=== PATIENT | female | born 1955 | race Two or more races ===

== ENCOUNTER 2022-10-06 18:41 | Inpatient (IN) | payer MEDICAID ==
[~2022-10-06] VITALS: Ht 157.5 cm; Wt 100.0 kg
[2022-10-06] MEDS ORDERED: IPRATROPIUM BROM 0.5 MG/2.5ML INH SOL HHN ONE (19:00)
[2022-10-06] MEDS ORDERED: methylPREDNISolone SOD SUCC 125 MG/2 ML VL IV ONE (19:00)
[2022-10-06] MEDS ORDERED: ALBUTEROL SULF 2.5 MG/0.5ML(0.5%) NEB SOLN HHN ONE (19:00)
[2022-10-06] MEDS ORDERED: ALBUTEROL MEDNEB 2.5 mg/3ml NEB ONE ×2 (19:03→23:22)
[2022-10-06 19:07] LABS: Basophils # (auto) 0.1 10 ^3/uL (0-0.2); Basophils % (auto) 0.7 % (0.0-2.0); Eosinophils # (auto) 0.6 10 ^3/uL (0-0.8); Eosinophils % (auto) 6.4 % (0.0-7.0); Hematocrit 39.9 % (36.0-46.0); Hemoglobin 12.7 g/dL (12.2-16.2); Lymphocytes # (auto) 3.4 10 ^3/uL (0.4-5.4); Lymphocytes % (auto) 37.4 % (10.0-50.0); Mean Corpuscular Hemoglobin 29.1 pg (28.0-32.0); Mean Corpuscular Hgb Conc. 31.8 g/dL (32.0-36.0); Mean Corpuscular Volume 91.7 fL (80.0-100.0); Monocytes # (auto) 0.5 10 ^3/uL (0-1.3); Monocytes % (auto) 5.3 % (0.0-12.0); Neutrophils # (auto) 4.5 10 ^3/uL (1.6-8.6); Neutrophils % (auto) 50.2 % (37.0-80.0); Nucleated Red Blood Cells % 0.1 %; Red Blood Cells 4.35 10^6/uL (4.0-5.20)
[2022-10-06 19:27] LABS: Albumin 3.4 g/dL (3.4-5.0); BUN/Creatinine Ratio 26.2; Calcium 9.3 mg/dL (8.5-10.1); Magnesium 2.3 mg/dL (1.6-2.6); Potassium 4.3 mmol/L (3.5-5.1)
[2022-10-06 19:30] LABS: Bilirubin, Total 0.3 mg/dL (0.2-1.0); Total Protein 7.5 g/dL (6.4-8.2)
[2022-10-06] MEDS ORDERED: ALBUTEROL SULF 2.5 MG/0.5ML(0.5%) NEB SOLN NEB PRN (21:45)
[2022-10-06] MEDS ORDERED: DEXTROSE (50%) 50ML SYRG IV PRN (21:45)
[2022-10-06] MEDS ORDERED: PANTOPRAZOLE 40 MG/10 ML VIAL INJ IV ONE (22:00)
[2022-10-06 22:17] VITALS: BP 92/28
[2022-10-06 22:34] LABS: Cholesterol 89 mg/dL (< 200)
[2022-10-06 22:37] LABS: HDL Cholesterol 44 mg/dL (40-59); LDL Cholesterol 41 mg/dL (< 100); Triglycerides 88 mg/dL (< 150)
[2022-10-06] MEDS: methylPREDNISolone SOD SUCC 125 MG/2 ML VL IV SCH (22:49)
[2022-10-06] MEDS: HEPARIN SODIUM (PORCINE) 5000 UNITS/ML 1ML VIAL SC SCH (22:50)
[2022-10-06] MEDS: ACCU-CHEK COMFORT CURVE STRIP VI SCH (22:51)
[2022-10-06] MEDS: InsuLIN REG 1unit/0.01ml Soln (100units/ml) SC SCH (22:51)
[2022-10-06] MEDS ORDERED: NITROGLYCERIN 0.4 MG SL TAB SL PRN (23:15)
[2022-10-06] MEDS ORDERED: MORPHINE SULFATE INJ 2 MG/ml SYRG IV PRN (23:30)
[2022-10-07] MEDS: ALBUTEROL SULF 2.5 MG/0.5ML(0.5%) NEB SOLN NEB SCH ×4 (00:15→18:31)
[2022-10-07] MEDS: IPRATROPIUM BROM 0.5 MG/2.5ML INH SOL NEB SCH ×4 (00:15→18:31)
[2022-10-07 02:58] LABS: Urine Bacteria NONE SEEN /hpf (None Seen); Urine Blood Negative /uL (Negative); Urine Hyaline Cast FEW /lpf (0 - 2); Urine Mucus FEW (None Seen); Urine Specific Gravity 1.023 (1.001-1.035); Urine WBC 2 /hpf (0 - 5)
[2022-10-07] MEDS ORDERED: ALBUTEROL MEDNEB 2.5 mg/3ml NEB ONE ×2 (06:04→11:34)
[2022-10-07] MEDS: InsuLIN REG 1unit/0.01ml Soln (100units/ml) SC SCH ×4 (07:38→22:21)
[2022-10-07] MEDS: ACCU-CHEK COMFORT CURVE STRIP VI SCH ×4 (07:38→22:20)
[2022-10-07] MEDS: ACETAMINOPHEN 325 MG TAB PO PRN (08:13)
[2022-10-07 08:16] LABS: Basophils # (auto) 0 10 ^3/uL (0-0.2); Basophils % (auto) 0.3 % (0.0-2.0); Eosinophils # (auto) 0 10 ^3/uL (0-0.8); Eosinophils % (auto) 0.1 % (0.0-7.0); Hematocrit 37.7 % (36.0-46.0); Hemoglobin 11.9 g/dL (12.2-16.2); Lymphocytes # (auto) 0.9 10 ^3/uL (0.4-5.4); Lymphocytes % (auto) 11.8 % (10.0-50.0); Mean Corpuscular Hemoglobin 28.7 pg (28.0-32.0); Mean Corpuscular Hgb Conc. 31.5 g/dL (32.0-36.0); Mean Corpuscular Volume 91.1 fL (80.0-100.0); Monocytes # (auto) 0 10 ^3/uL (0-1.3); Monocytes % (auto) 0.6 % (0.0-12.0); Neutrophils # (auto) 6.7 10 ^3/uL (1.6-8.6); Neutrophils % (auto) 87.2 % (37.0-80.0); Nucleated Red Blood Cells % 0.1 %; Red Blood Cells 4.14 10^6/uL (4.0-5.20); Red Cell Distribution Width 18.1 % (11.8-14.3); White Blood Cell 7.7 10^3/uL (4.4-10.8)
[2022-10-07 08:36] LABS: Albumin 3.3 g/dL (3.4-5.0); Calcium 8.8 mg/dL (8.5-10.1); Potassium 4.1 mmol/L (3.5-5.1)
[2022-10-07 08:41] LABS: BUN/Creatinine Ratio 25.7; Bilirubin, Total 0.3 mg/dL (0.2-1.0); Total Protein 6.9 g/dL (6.4-8.2)
[2022-10-07] MEDS: PANTOPRAZOLE 40 MG/10 ML VIAL INJ IV SCH (10:00)
[2022-10-07] MEDS: methylPREDNISolone SOD SUCC 125 MG/2 ML VL IV SCH (10:52)
[2022-10-07] MEDS: HEPARIN SODIUM (PORCINE) 5000 UNITS/ML 1ML VIAL SC SCH (10:53)
[2022-10-07] MEDS: FUROSEMIDE 40 MG/4 ML VIAL IV SCH (18:25)
[2022-10-07 19:40] LABS: Protein, Urine 103.7 mg/dL (0.0-11.9)
[2022-10-07] MEDS: ENOXAPARIN SOD 100 MG/1 ML SYRINGE SC SCH (22:41)
[2022-10-08] MEDS: IPRATROPIUM BROM 0.5 MG/2.5ML INH SOL NEB SCH ×4 (00:02→18:21)
[2022-10-08] MEDS: ALBUTEROL SULF 2.5 MG/0.5ML(0.5%) NEB SOLN NEB SCH ×4 (00:02→18:21)
[2022-10-08 05:00] VITALS: BP 111/54
[2022-10-08 05:38] LABS: Calcium 8.8 mg/dL (8.5-10.1)
[2022-10-08 05:40] LABS: BUN/Creatinine Ratio 26.2
[2022-10-08] MEDS ORDERED: ALBUTEROL MEDNEB 2.5 mg/3ml NEB ONE ×3 (06:19→23:41)
[2022-10-08] MEDS: ACCU-CHEK COMFORT CURVE STRIP VI SCH ×4 (07:00→22:00)
[2022-10-08] MEDS: InsuLIN REG 1unit/0.01ml Soln (100units/ml) SC SCH ×4 (07:20→22:01)
[2022-10-08] MEDS: FUROSEMIDE 40 MG/4 ML VIAL IV SCH ×2 (07:22→18:42)
[2022-10-08 12:00] VITALS: BP 127/68
[2022-10-08] MEDS: ENOXAPARIN SOD 100 MG/1 ML SYRINGE SC SCH ×2 (12:06→22:00)
[2022-10-08] MEDS: PANTOPRAZOLE 40 MG/10 ML VIAL INJ IV SCH (12:06)
[2022-10-08] MEDS ORDERED: CARV6.2551 PO (12:16)
[2022-10-08] MEDS ORDERED: GLIP10TA9 PO (12:16)
[2022-10-08] MEDS ORDERED: ALLO300T2 PO (12:16)
[2022-10-08] MEDS ORDERED: ASPI1TAB37 PO (12:16)
[2022-10-08] MEDS ORDERED: AMLO-483 PO (12:16)
[2022-10-08] MEDS ORDERED: TICA1TAB PO (12:16)
[2022-10-08] MEDS ORDERED: ROSU1TAB13 PO (12:16)
[2022-10-08] MEDS ORDERED: LEVEMIR SC (12:16)
[2022-10-08] MEDS ORDERED: GABA300C10 PO (12:16)
[2022-10-08] MEDS ORDERED: LOSA-69 PO (12:16)
[2022-10-08] MEDS ORDERED: FERR-7 PO (12:16)
[2022-10-08 16:00] VITALS: BP 121/61
[2022-10-08 21:56] VITALS: BP 130/54
[2022-10-09] MEDS: IPRATROPIUM BROM 0.5 MG/2.5ML INH SOL NEB SCH ×5 (00:08→23:46)
[2022-10-09] MEDS: ALBUTEROL SULF 2.5 MG/0.5ML(0.5%) NEB SOLN NEB SCH ×5 (00:08→23:46)
[2022-10-09] MEDS ORDERED: ALBUTEROL MEDNEB 2.5 mg/3ml NEB ONE ×3 (06:01→23:42)
[2022-10-09] MEDS: FUROSEMIDE 40 MG/4 ML VIAL IV SCH ×2 (06:30→11:35)
[2022-10-09] MEDS: ACCU-CHEK COMFORT CURVE STRIP VI SCH ×4 (06:30→21:46)
[2022-10-09] MEDS: InsuLIN REG 1unit/0.01ml Soln (100units/ml) SC SCH ×4 (06:31→21:47)
[2022-10-09 07:19] LABS: BUN/Creatinine Ratio 33.8; Calcium 8.8 mg/dL (8.5-10.1); Potassium 3.6 mmol/L (3.5-5.1)
[2022-10-09 09:00] VITALS: BP 97/51
[2022-10-09] MEDS: ENOXAPARIN SOD 100 MG/1 ML SYRINGE SC SCH ×2 (09:55→21:46)
[2022-10-09] MEDS: PANTOPRAZOLE 40 MG/10 ML VIAL INJ IV SCH (09:57)
[2022-10-09 13:00] VITALS: BP 130/62
[2022-10-09 17:00] VITALS: BP 104/46
[2022-10-09 19:11] VITALS: BP 104/46
[2022-10-09] MEDS ORDERED: ONDANSETRON HCL 4 MG/2 ML VIAL IV PRN (21:15)
[2022-10-09 22:00] VITALS: BP 99/53
[2022-10-10 05:00] VITALS: BP 109/56
[2022-10-10] MEDS: IPRATROPIUM BROM 0.5 MG/2.5ML INH SOL NEB SCH ×2 (06:00→12:35)
[2022-10-10] MEDS: ALBUTEROL SULF 2.5 MG/0.5ML(0.5%) NEB SOLN NEB SCH ×2 (06:00→12:36)
[2022-10-10] MEDS ORDERED: ALBUTEROL MEDNEB 2.5 mg/3ml NEB ONE ×3 (06:17→10:53)
[2022-10-10] MEDS: ACCU-CHEK COMFORT CURVE STRIP VI SCH ×2 (06:40→12:40)
[2022-10-10] MEDS: InsuLIN REG 1unit/0.01ml Soln (100units/ml) SC SCH ×2 (06:40→12:41)
[2022-10-10 06:42] LABS: Potassium 3.7 mmol/L (3.5-5.1)
[2022-10-10 06:43] LABS: BUN/Creatinine Ratio 31.6; Calcium 8.9 mg/dL (8.5-10.1)
[2022-10-10 09:00] VITALS: BP 101/50
[2022-10-10] MEDS: ACETAMINOPHEN 325 MG TAB PO PRN (09:02)
[2022-10-10] MEDS: FUROSEMIDE 40 MG/4 ML VIAL IV SCH (10:00)
[2022-10-10] MEDS: ENOXAPARIN SOD 100 MG/1 ML SYRINGE SC SCH (10:22)
[2022-10-10] MEDS: PANTOPRAZOLE 40 MG/10 ML VIAL INJ IV SCH (10:22)
[2022-10-10] MEDS ORDERED: IPRATROPIUM BROM 0.5 MG/2.5ML INH SOL ONE (10:53)
[2022-10-10 12:51] VITALS: BP 110/56
[2022-10-10] MEDS ORDERED: DOXY-286 PO (13:14)
[2022-10-10] MEDS ORDERED: ALBUTEROL MEDNEB 2.5 mg/3ml NEB NEB PRN (13:15)
[2022-10-10 13:36] VITALS: BP 101/50
[2022-10-10] MEDS ORDERED: GABAPENTIN 300 MG CAP PO SCH (14:00)
[2022-10-10] MEDS ORDERED: ALBUTEROL MEDNEB 2.5 mg/3ml NEB NEB SCH (18:00)
[2022-10-10] MEDS ORDERED: INSULIN DETEMIR 30 UNIT SC SCH (22:00)
[2022-10-10] MEDS ORDERED: PATIENTS OWN MEDICATION (Glipizide 1 TAB) PO SCH (22:00)
[2022-10-10] MEDS ORDERED: ATORVASTATIN 20 MG TAB PO SCH (22:00)
[2022-10-10] MEDS ORDERED: CARVEDILOL 3.125 MG TAB PO SCH (22:00)
[2022-10-10] MEDS ORDERED: TICAGRELOR 60 MG TAB PO SCH (22:00)
[2022-10-11] MEDS ORDERED: ALLOPURINOL 300 MG TAB PO SCH (10:00)
[2022-10-11] MEDS ORDERED: amLODIPine BESYLATE 5 MG TAB PO SCH (10:00)
[2022-10-11] MEDS ORDERED: ASPirin-EC 81 mg tab PO SCH (10:00)
[2022-10-11] MEDS ORDERED: FERROUS SULFATE 325mg EC TAB PO SCH (10:00)
== END 2022-10-10 14:00 | disposition home or self-care (01) | DRG 140 ==
LOC: ER 18:41 → TELE 23:15 → TELE-WESTW 10-08 09:20
PROVIDERS: ADMIT Nurse Practitioner Family; ATTEND Internal Medicine
DX: J44.1 Chronic obstructive pulmonary disease with (acute) exacerbation (principal); J96.01 Acute respiratory failure with hypoxia; I50.33 Acute on chronic diastolic (congestive) heart failure; N17.9 Acute kidney failure, unspecified; I11.0 Hypertensive heart disease with heart failure; E11.65 Type 2 diabetes mellitus with hyperglycemia; E66.01 Morbid (severe) obesity due to excess calories; E78.5 Hyperlipidemia, unspecified; I25.10 Atherosclerotic heart disease of native coronary artery without angina pectoris; J98.11 Atelectasis; Z20.822 Contact with and (suspected) exposure to COVID-19; Z68.41 Body mass index [BMI] 40.0-44.9, adult; Z82.49 Family history of ischemic heart disease and other diseases of the circulatory system; Z83.3 Family history of diabetes mellitus; Z87.891 Personal history of nicotine dependence; Z90.710 Acquired absence of both cervix and uterus; Z98.61 Coronary angioplasty status; Z90.49 Acquired absence of other specified parts of digestive tract
CPT/HCPCS: 36415; 36600; 71045; 76775; 78582; 80048; 80053; 80061; 81001; 82570; 82805; 82962; 83036; 83605; 83735; 83880; 84156; 84300; 84443; 84484; 85025; 85049; 85379; 87040; 87426; 87804; 93005; 93306; 94640; 94644; 96374; 96375; 99291; C9113; G0378; J1815; J2405

== ENCOUNTER 2025-04-30 11:33 | Day surgery (SDC) | payer MEDICAID ==
[2025-04-25 11:30] LABS: Hematocrit 35.5 % (36.0-46.0); Hemoglobin 12.0 g/dL (12.2-16.2); Mean Corpuscular Hemoglobin 32.3 pg (28.0-32.0); Mean Corpuscular Volume 95.5 fL (80.0-100.0); Nucleated Red Blood Cells % 0.0 %
[2025-04-25 11:44] LABS: INR 1.0 (0.9-1.15); Partial Thromboplastin Time 26.1 SEC (24.5-34.5); Prothrombin Time 10.6 sec (9.3-11.8)
[2025-04-25 12:09] LABS: Alanine Aminotransferase 27 U/L (7-40); Albumin 4.3 g/dL (3.2-4.8); Alkaline Phosphatase 49 U/L (46-116); Anion Gap 9 (5-15); BUN/Creatinine Ratio 20.9 (10.0-20.0); Bilirubin, Total 0.4 mg/dL (0.2-1.0); Calcium 9.1 mg/dL (8.7-10.4); Carbon Dioxide 25 mmol/L (20-31); Glucose 87 mg/dL (74-106); Potassium 3.7 mmol/L (3.5-5.1); Sodium 143 mmol/L (136-145); Total Protein 6.7 g/dL (5.7-8.2)
[2025-04-25 12:11] LABS: Blood Urea Nitrogen 29 mg/dL (9-23); Chloride 109 mmol/L (98-107)
[2025-04-25 12:17] LABS: Urine Protein, UAD TRACE (Negative)
[~2025-04-30] VITALS: Ht 154.9 cm; Wt 62.1 kg
[~2025-04-30 11:33] MED LIST: ALBUAER3 IN; ALLO300T2 PO; ASPI-628 PO; CALC1CHW30 PO; CARV6.2551 PO; CHOL100055 PO; CICL0.7746 TOP; DAPA1TAB4 PO; FLUT250M2 INH; GABA-1250 PO; LEVEMIR SC; LOSA-534 PO; MULT-1018 PO; OMEP20TA PO; ROSU10TA64 PO
[2025-04-30] MEDS ORDERED: MIDAZOLAM HCL 2MG/2ML 2ml VIAL (1mg/ml) ONE (13:22)
[2025-04-30] MEDS ORDERED: PROPOFOL 10 MG/ML 20 ML IV ONE (13:22)
[2025-04-30] MEDS ORDERED: ONDANSETRON HCL 4 MG/2 ML VIAL ONE (13:22)
[2025-04-30] MEDS ORDERED: KETOROLAC TROMETH 30 MG/ML 1ML VIAL ONE (13:22)
[2025-04-30] MEDS ORDERED: GLYCOPYRROLATE 0.2 MG/ML 1ML VIAL ONE (13:22)
[2025-04-30] MEDS: ceFAZolin 2 GM/D5W50ml 50 ML IV ONE (13:28)
[2025-04-30] MEDS: BUPIVACAINE HCL 50 ML ONE (13:40)
[2025-04-30 14:09] VITALS: PULSE 70; RESP 15; TEMP 97.9; O2SAT 100
--- NOTE | 2025-04-30 14:13 | DVHOP2 ---
Operative Report - 2 Report Details Date: 04/30/25 Preop Diagnosis: 1. Right foot hammer toe 2. Right foot bunion 3. Right foot tailors bunion 4. Left foot tailors bunion Postop Diagnosis: Same as preop Surgeon: Conrado Huggins MD Anesthesiologist: See anesthesia Anesthesia: Mac Implant: 6 2 K-wire x3 4 5 K-wire x2 Consent: The patient was informed of the risks and benefits of the procedure. These include but are not limited to complications of anesthesia, postoperative infection, incomplete relief of symptoms, recurrence of symptoms, damage to b lood vessels, nerves and tendons, deep venous thrombosis, pulmonary embolism and possible need for repeat surgery in the future. Complications: None Estimated Blood Loss: Minimal Fluids: See anesthesia Findings: Consistent with diagnosis Indications for Surgery: Worsening foot pain Name of Procedure Performed 1. Right foot second hammer toe repair (96628) 2. Right foot third hammer toe repair (45921) 3. Right foot tailors bunionectomy (87099) 4. Right foot bunionectomy (94739) 5. Left foot tailors bunionectomy (58995) Procedure Details Procedure Details: PRE-PROCEDURE INFORMATION: In the pre-op holding area, the extremity to be operated on was clearly marked and the patient verified correct laterality of the marking. The patient was transferred to the OR table and placed in a supine position. A timeout was performed in which identification of the correct patient, procedure, location, and materials was done. The bilateral foot and leg were prepped and draped in normal sterile fashion. The foot and leg were exsanguinated and the _ tourniquet was inflated to 250 mmHg. DESCRIPTION OF PROCEDURE: Attention was directed to the right 2nd where hammertoe was located was located. A stab incision was made medial to the right hallux. The incision was deepened through blunt and sharp dissection. Care was taken to avoid any neurovascular and tendinous structures. Using the Arthrex MIS bur, an osteotomy was performed and correction of the rigid hammertoe was noted. After the bur was used the exostosis was no longer felt clinically. The incision was closed with a 4-0 nylon. Attention was directed to the right 3rd where hammertoe was located was located. A stab incision was made medial to the right hallux. The incision was deepened through blunt and sharp dissection. Care was taken to avoid any neurovascular and tendinous structures. Using the Arthrex MIS bur, an osteotomy was performed and correction of the rigid hammertoe was noted. After the bur was used the exostosis was no longer felt clinically. The incision was closed with a 4-0 nylon. Attention was directed to the right lateral fifth metatarsal head where a stab incision was made. This incision was deepened through blunt and sharp dissection. Care was taken to avoid damage to neurovascular structures throughout dissection. The incision was carried to the level of the fifth metatarsal head where on intraoperative fluoroscopy as well as preoperative x- rays, it was noted there was no significantly increased lateral deviation angle of the fifth metatarsal, but the lateral aspect of the fifth metatarsal head appeared to be prominent. This indicated that the patient would benefit from an ostectomy of the metatarsal head without osteotomy. Using an MIS bur, an osteotomy was made across the neck of the metatarsal head. Using a 0.62 K wire, the wire was then placed down the shaft of the 5th metatarsal holding the head in the appropriate position. It was noted on intraoperative fluoroscopy, there was significant reduction of deformity Attention was directed to the right 1st metatarsophalangeal joint where a stab incision was made at the neck of the 1st metatarsal. Care was taken to avoid damage the neurovascular and tendinous structures. Using intraoperative fluoroscopy and an MIS per, an osteotomy was then made at the neck of the 1st metatarsal. The metatarsal head was then shifted into position aligning the sesamoid bones over the fragment. Using a 6 2 K-wire, the wire was then driven down the shaft of the 1st metatarsal to hold the head in place until the osteotomy has healed. Fluoroscopy verified proper placement of hardware as well as correction of previous bunion deformity. Attention was directed to the left lateral fifth metatarsal head where a stab incision was made. This incision was deepened through blunt and sharp dissection. Care was taken to avoid damage to neurovascular structures throughout dissection. The incision was carried to the level of the fifth metatarsal head where on intraoperative fluoroscopy as well as preoperative x- rays, it was noted there was no significantly increased lateral deviation angle of the fifth metatarsal, but the lateral aspect of the fifth metatarsal head appeared to be prominent. This indicated that the patient would benefit from an ostectomy of the metatarsal head without osteotomy. Using an MIS bur, an osteotomy was made across the neck of the metatarsal head. Using a 0.62 K wire, the wire was then placed down the shaft of the 5th metatarsal holding the head in the appropriate position. It was noted on intraoperative fluoroscopy, there was significant reduction of deformity All surgical wounds were irrigated copiously with saline and closed in layers with the aforementioned suture material. A dry sterile dressing was placed on the surgical extremity. The patient was placed in a postop shoe POSTOPERATIVE INFORMATION: The patient tolerated the above noted procedure and anesthesia well and was transferred to the PACU with vital signs stable, and vascular status intact with capillary refill intact to all digits. Postoperative instructions reviewed in detail with the patient with written instructions provided. Patient will return to clinic in approximately 10-14 days for first postoperative visit. Patient has the number of the clinic and was instructed to call prior to that time should any problems, questions, or concerns arise. Condition Good Disposition Home Visit Coding Podiatry Date of Service if different f: Apr 30, 2025 Billing Provider: OCNRADO HUGGINS DPM Podiatry Common Visit Codes: PROCEDURE ONLY CONRADO HUGGINS DPM Apr 30, 2025 14:13
[2025-04-30] MEDS ORDERED: HYDROmorphone HCL 2 MG/ML VL/or syr IV PRN (14:15)
[2025-04-30 14:51] VITALS: BP 145/58; PULSE 69; RESP 15; O2SAT 98
== END 2025-04-30 15:00 | disposition home or self-care (01) ==
LOC: SUR 11:33
PROVIDERS: ATTEND Podiatrist
DX: M20.41 Other hammer toe(s) (acquired), right foot (principal); M21.611 Bunion of right foot; M21.621 Bunionette of right foot; M21.622 Bunionette of left foot; I12.9 Hypertensive chronic kidney disease with stage 1 through stage 4 chronic kidney disease, or unspecified chronic kidney disease; E11.22 Type 2 diabetes mellitus with diabetic chronic kidney disease; N18.30 Chronic kidney disease, stage 3 unspecified; E78.5 Hyperlipidemia, unspecified; Z79.82 Long term (current) use of aspirin; Z79.4 Long term (current) use of insulin; Z79.899 Other long term (current) drug therapy; Z83.3 Family history of diabetes mellitus; Z82.49 Family history of ischemic heart disease and other diseases of the circulatory system; Z95.5 Presence of coronary angioplasty implant and graft; Z90.710 Acquired absence of both cervix and uterus; Z98.41 Cataract extraction status, right eye; Z98.42 Cataract extraction status, left eye; Z98.890 Other specified postprocedural states; Z88.8 Allergy status to other drugs, medicaments and biological substances
CPT/HCPCS: 28285; 28296; 28308; 36415; 80053; 81001; 82962; 85025; 85610; 85730; J0690; J1885; J2250; J2405; J2704; J3490